=== PATIENT | male | born 1960 | race Caucasian/White ===

== ENCOUNTER 2016-06-11 05:59 | Emergency (ER) | payer OTHER ==
[~2016-06-11] VITALS: Ht 180.3 cm; Wt 102.1 kg
--- NOTE | 2016-06-11 06:21 | ED NECK/BACK PAIN COMPLAINT ---
History of Present Illness General Chief Complaint: Skin Rash/ Abcess Stated Complaint: VERY LARGE PAINFUL LUMP ON NECK Source: patient Exam Limitations: no limitations Vital Signs & Intake/Output Vital Signs & Intake/Output Vital Signs Date Time Temp Pulse Resp B/P Pulse O2 O2 Flow FiO2 Ox Delivery Rate 06/11 0628 96 Room Air 06/12 615 97.2 86 20 123/80 95 Room Air Triage Note: 56yo MALE TO TRIAGE W/CO SWELLING TO L SIDE OF HIS NECK SINCE WEDNESDAY. STATES HE WAS SEEN BY PMD, HAD CT YESTERDAY AT [facility] AND FEELS SWELLING HAS INCREASED SINCE YESTERDAY. ALSO STATES "DUE TO TOO MUCH PAIN HE WAS UNABLE TO SLEEP LAST NIGHT" Triage Nurses Notes Reviewed? yes Onset: Abrupt Duration: day(s): (4) Timing: recent history Location: LEFT NECK Radiation: none HPI: 56-year-old male presents with chief complaint of worsening left-sided neck pain and swelling. He was seen by his primary care doctor on Wednesday and had an outpatient CAT scan done yesterday. According to the he had a small mass there for about 6 weeks with patient reports it was very small and only increased since Wednesday. No fever or chills. No night sweats. He is a former significant smoker. Denies any difficulty with swallowing that he is worried about swallowing solid foods. No voice changes. He states the pain was so bad last night that he couldn't sleep properly. Pain was worse with range of motion of head to the left. (SABA RUBIO,MARY) Allergies Coded Allergies: oxycodone (From OXYCONTIN) (Mild, VOMITING 06/11/16) (DIMAS RUBIO,DANIEL Coughlin) Past History Travel History Traveled to [place] past 21 day No Medical History Any Pertinent Medical History? see below for history Cardiovascular: AFIB, hypertension Gastrointestinal: GERD Surgical History Surgical History: non-contributory Psychosocial History What is your primary language Ukrainian Tobacco Use: Quit >30 days ago Family History Hx Contributory? No (MARY WALTER MD) Review of Systems Review of Systems Constitutional: Denies: chills, fever, malaise, weakness, unexplained weight loss. Eyes: Reports: no symptoms. Ears, Nose, Throat, Mouth: Reports: no symptoms. Respiratory: Denies: cough, short of breath. Cardiovascular: Reports: no symptoms. Gastrointestinal/Abdominal: Reports: no symptoms. Musculoskeletal: Reports: muscle pain, muscle stiffness, neck pain. Skin: Reports: no symptoms. Neurological/Psychological: Reports: anxiety. All Other Systems: Reviewed and Negative (SABA RUBIO,MARY) Physical Exam Physical Exam General Appearance: well developed/nourished, alert, awake, anxious, mild distress Head: atraumatic Eyes: Bilateral: PERRL, EOMI. Ears, Nose, Throat, Mouth: hearing grossly normal Neck: LARGE PALPABLE PAST WITH ASSOCIATED SOFT TISSUE SWELLING nO STRIDOR nO ERYTHEMA Respiratory: normal breath sounds Cardiovascular: regular rate/rhythm Peripheral Pulses: 2+ radial (R), 2+ radial (L) Gastrointestinal: soft, non-tender Back: normal inspection Extremities: normal range of motion Neurologic/Psych: awake, alert, oriented x 3, normal mood/affect Skin: intact, normal color, warm/dry (SABA RUBIO,MARY) Progress Differential Diagnosis: PATHOLOGIC LYMPH NODE INFECTED LN, INFECTED CYST Plan of Care: Orders Procedure Date/time Status COMPREHENSIVE METABOLIC PANEL 06/11 629 Complete CBC WITHOUT DIFFERENTIAL 06/11 0530 Active Laboratory Tests 06/11/16 0646: Anion Gap 10, Estimated GFR > 60, BUN/Creatinine Ratio 15.5, Glucose 147 H, Calcium 9.7, Total Bilirubin 1.3, AST 21, ALT 38, Alkaline Phosphatase 100, Total Protein 7.1, Albumin 4.0, Globulin 3.1, Albumin/Globulin Ratio 1.3, CBC w Diff Pending, WBC Pending, RBC Pending, Hgb Pending, Hct Pending, MCV Pending, MCH Pending, RDW Pending, Plt Count Pending, MPV Pending, PUBS MCHC Pending DR SMITH TO SEE PATIENT IN ED. 6:[address] SARAH LEROY. (SABA RUBIO,MARY) Radiology Impression: PATIENT: SHARON IYER PRESENT AGE: 56 PATIENT ACCOUNT NO: [id number] : 56 LOCATION: [facility] ORDERING PHYSICIAN: JB SMITH MD SERVICE DATE: 06/10/160949 EXAM TYPE: CAT - CT NECK W IV CONTRAST EXAMINATION: CT NECK WITH CONTRAST CLINICAL INFORMATION: Cervical adenopathy. COMPARISON: None TECHNIQUE: Multidetector helical imaging was performed in the axial plane following intravenous administration of 93 mL of Optiray 320. DLP: 771.7 mGy-cm FINDINGS: There is a peripherally enhancing centrally low dense cystic-appearing lesion in the left anterior cervical space which is situated at the anteromedial margin of the left sternocleidomastoid muscle and inferior to the left submandibular gland, measuring 2.1 cm in long axis dimension in the axial plane and 2.5 cm CC. There are inflammatory changes in the surrounding soft tissues at this site as well. No clearly delineated sinus tract is visible. The left jugulodigastric lymph node is mildly enlarged, measuring 1.9 cm in long axis dimension in the axial plane. There are additional conspicuous left-sided level IV lymph nodes which are not pathologically enlarged but are increased in number and size compared to the right side, measuring up to 1 cm in diameter. There is a mildly enlarged 1.5 cm right-sided level V lymph node as well. No additional right-sided cervical adenopathy is seen. No contour abnormality is clearly visible in the pharyngeal mucosal space or oral cavity. No pathologic enhancement is visible in these regions. The laryngeal structures appear relatively normal, though there is asymmetric aeration of the right piriform sinus and the left glottic fold is slightly lateralized and position. There is a small low-density nodule versus cyst measuring 0.8 cm in size in the posterior right thyroid lobe. The carotid sheath vasculature opacifies normally. The parotid and submandibular glands appear normal. The retropharyngeal space is normal. No acute osseous abnormality seen. There is bulky anterior bridging endplate osteophyte formation most notable at the C5-C6 and C6-C7 levels. The imaged mediastinum is unremarkable and the visualized portions of the lungs are clear. There is a sigmoidal-shaped nasal septal deviation with osseous spurring. The visualized portions of the paranasal sinuses are well aerated. The TMJs are normal. The middle ear cavities and mastoid air cells are well aerated bilaterally. The imaged portions of the orbits are unremarkable. The visualized brain parenchyma demonstrates no acute abnormality. IMPRESSION: Cystic-appearing 2.1 x 2.5 cm lesion in the left anterior cervical space lateral to the thyroid cartilage and at the anteromedial margin of the left sternocleidomastoid muscle with mild peripheral enhancement and surrounding soft tissue inflammatory changes. Mildly enlarged left-sided jugulodigastric lymph node and asymmetrically prominent/increased number of left -sided level IV lymph nodes. Nonspecific mildly enlarged right-sided level V lymph node. A pathologic cystic lymph node with additional adenopathy due to an unknown primary lesion is a diagnostic consideration. An inflamed/infected type II brachial cleft cyst with reactive adenopathy is another possibility but would be less typical in a patient of this age. Mild asymmetry of the glottic folds at the level of the larynx without a discrete lesion. Suggest correlation with direct visual inspection. DICTATED BY: MALGORZATA LOERA MD DATE/TIME DICTATED:1055 RACEBOOK WRITER:NATALIIA DATE/TIME TRANSCRIBED:06/10/161055 CONFIDENTIAL, DO NOT COPY WITHOUT APPROPRIATE AUTHORIZATION. 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 He has been evaluated by Dr. SMITH in the emergency department. Plan Augmentin, prednisone and anti-inflammatory. (DIMAS RUBIO,DANIEL Coughlin) Departure Departure Condition: Stable Referrals: DINESH AG MD (PCP/Family) Departure Forms: Customer Survey General Discharge Information (MARY WALTER MD) Departure Disposition: HOME OR SELF CARE Clinical Impression Primary Impression: Neck mass Secondary Impressions: Hyperglycemia, Hyponatremia Additional Instructions: Augmentin prednisone and Toradol as prescribed. Follow-up with Dr. SMITH as discussed. Return if any concerns or sudden worsening. Please note that there might be incidental findings in your evaluation that are unrelated to the current emergency department visit. Please notify your primary care doctor about this emergency department visit in order to obtain and review all of the testing performed so that these incidental findings can be monitored as needed. If you had an x-ray performed, please understand that some fractures may not be seen on the initial set of x-rays. If your symptoms persist you might need a repeat set of x-rays to check for such a fracture. If you had a laceration evaluated, please understand that foreign bodies such as glass or wood may not be visible to the naked eye or on plain x-rays. If the wound becomes red, swollen, increasingly more painful or if there is any drainage from the wound, please have it reevaluated by a physician for the possibility of a retained foreign body. Thank you for choosing the [facility] Emergency Department for your care. It was a pleasure to serve you today. Daniel Jarrell M.D. [facility] Prescriptions: Current Visit Scripts Augmentin (Augmentin 500-125 Tablet) 1 TAB PO TID #21 TAB Methylprednisolone. (Medrol) 1 DP PO AD #1 DP 6 on day 1 then reduce by one tablet daily until gone Ketorolac Tromethamine 1 TAB PO Q6P PRN PAIN #16 TAB PT GIVEN IV TORADOL IN THE ED (DIMAS RUBIO,DANIEL Coughlin)
[2016-06-11] MEDS ORDERED: MEDROL4 M2 PO ×2 (07:32→08:07)
[2016-06-11] MEDS ORDERED: KETOROLAC TROME10 M1 PO ×2 (07:32→08:07)
[2016-06-11] MEDS ORDERED: AUGMENTIN 500-1 EACH PO ×2 (07:32→08:07)
[2016-06-11 07:39] LABS: ABSOLUTE BASOPHIL COUNT 0.1 /CUMM (0.0-0.2); ABSOLUTE EOSINOPHIL COUNT 0 /CUMM (0.0-0.7); ABSOLUTE GRANULOCYTE CT 15.1 /CUMM (1.4-6.5); ABSOLUTE LYMPH COUNT 1.3 /CUMM (1.2-3.4); ABSOLUTE MONOCYTE COUNT 1.4 /CUMM (0.10-0.60); BASOPHIL % 0.3 % (0.0-2.0); EOSINOPHIL % 0.1 % (0-5); GRANULOCYTE % 84.7 % (42.2-75.2); HEMATOCRIT 44.2 % (42-52); MEAN CORPUSCULAR HGB CONC 34.1 G/DL (33.0-37.0); MEAN CORPUSCULAR VOLUME 87.9 FL (80.0-94.0); MEAN PLATELET VOLUME 8.5 FL (7.4-10.4); PLATELET COUNT 237 /CUMM (130-400); RBC DISTRIBUTION WIDTH 12.5 % (11.5-14.5); RED BLOOD CELL CT 5.03 /CUMM (4.70-6.10); WHITE BLOOD CELL COUNT 17.9 /CUMM (4.8-10.8)
[2016-06-11 07:55] VITALS: BP 132/80
== END 2016-06-11 08:13 ==
LOC: ERH 05:59
PROVIDERS: Emergency Medicine
DX: R22.1 Localized swelling, mass and lump, neck (principal); E87.1 Hypo-osmolality and hyponatremia; R73.9 Hyperglycemia, unspecified
CPT/HCPCS: 96365; 96375; J1885

== ENCOUNTER 2017-07-04 12:15 | Emergency (ER) | payer OTHER ==
[~2017-07-04] VITALS: Ht 177.8 cm; Wt 106.6 kg
[~2017-07-04 12:15] MED LIST: AUGMENTIN 500-1 EACH PO; KETOROLAC TROME10 M1 PO; MEDROL4 M2 PO
[2017-07-04 12:18] VITALS: BP 150/100
--- NOTE | 2017-07-04 12:52 | ED INFLUENZA/URI COMPLAINT ---
History of Present Illness General Chief Complaint: Upper Respiratory Sx/Fever Stated Complaint: COUGH WANTS CHEST XRAY SICH FOR 10 DAYS Source: patient, old records Exam Limitations: no limitations Vital Signs & Intake/Output Vital Signs & Intake/Output Vital Signs Date Time Temp Pulse Resp B/P B/P Pulse O2 O2 Flow FiO2 Mean Ox Delivery Rate 07/04 1259 94 Room Air 07/04 1218 97.7 91 22 150/100 94 Room Air Room Air Allergies Coded Allergies: oxycodone (From OXYCONTIN) (Mild, VOMITING 06/11/16) Reconcile Medications Augmentin (Augmentin 500-125 Tablet) 500 MG-125 MG TABLET 1 TAB PO TID INFECTION Codeine Phosphate/Guaifenesi (Guaifen-Codeine 200-20 MG/10ML) 20 MG-200 MG/10 ML LIQUID 10 ML PO Q6HR PRN COUGH Ketorolac Tromethamine 10 MG TABLET 1 TAB PO Q6P PRN pain pt received parenteral toradol in ED Methylprednisolone. (Medrol) 4 MG TAB.DS.PK 1 DP PO AD PAIN 6 on day 1 then reduce by one tablet daily until gone Triage Note: TRIAGE: 57 Y/O MALE PRESENTS REQUESTING CHEST XRAY C/O 10 DAYS OF COUGH. AFEBRILE IN TRIAGE. ROOM AIR SPO2 94%. Triage Nurses Notes Reviewed? yes Onset: Gradual Duration: day(s): (10), constant Timing: recent history Severity: moderate Severity Numbers: 5 Prior Episodes/Possible Cause: occassional episodes No Modifying Factors: none Associated Symptoms: denies HPI: 57-year-old male history of A. fib on elliquis, hypertension former smoker presents to the ER for evaluation complaining of a 10 day history of a nonproductive cough. No fever no chills. 5 days ago he saw his primary care physician prescribed him pro-air inhaler prednisone and Augmentin which she finished today. The cough persists. No sick contacts no shortness of breath chest pain abdominal pain. He reports one episode of vomiting a few days ago however none since. No abdominal pain diarrhea. No sputum production or hemoptysis. He has not been using the inhaler as he was concerned that this could cause a mouth infection He is scheduled to go for pulmonary function testing this week. (Christopher ADLER,Christiano) Past History Travel History Traveled to [place] past 21 day No Medical History Any Pertinent Medical History? see below for history Cardiovascular: AFIB, hypertension Gastrointestinal: GERD Surgical History Surgical History: non-contributory Psychosocial History What is your primary language Greenlandic Tobacco Use: Quit >30 days ago ETOH Use: occasional use Illicit Drug Use: denies illicit drug use Family History Hx Contributory? No (Christiano Herrera) Review of Systems Review of Systems Constitutional: Reports: no symptoms, see HPI. Comments Review of systems: See HPI, All other systems negative. Constitutional, no chills no fever, no malaise HEENT: sore throat no congestion, no ear pain Cardiovascular: No chest pain , no palpitation Skin: no rashes, no change in skin Respiratory: No dyspnea cough no sputum no hemoptysis GI: No nausea no vomiting, Muscle skeletal: No joint pain, no back pain, no neck pain, Neurologic: , no headache Heme/endocrine: No bruising Immunology: No lymphadenopathy (Christiano Herrera) Physical Exam Physical Exam General Appearance: well developed/nourished, no apparent distress, alert, awake Ears, Nose, Throat: normal ENT inspection, moist mucous membrane Comments: Well-developed well-nourished patient in no apparent distress. Head/Face: Atraumatic, no maxillary/frontal sinus tenderness, no facial swelling Eyes: PERRL, EOMI Ear:External auditory canal and Tympanic membranes clear, no erythema, no FB. Nose: atraumatic.Normal inspection Throat: Moist mucous membranes.Pharynx normal. No pharyngeal erythema/exudate seen. No stridor/drooling or assymetry. No swelling or edema. Neck: Supple, no lymphadenopathy, FROM Back: FROM Cardiovascular: Regular rate and rhythms no murmur Respiratory: Chest nontender.There were no bony deformities, no asymmetry. No respiratory distress. Patient speaking in full complete sentences. Breath sounds clear to auscultation bilaterally: NO W/R/R Extremities: full range of motion Neuro: awake, alert, and oriented to person, place and time. There were no obvious focal neurologic abnormalities. Skin: Warm & dry;No appreciable rash on exposed skin Psych: Mood affect normal, normal memory normal judgment. Core Measures Sepsis Present: No Sepsis Focused Exam Completed? No (Christiano Herrera) Progress Differential Diagnosis: influenza, pneumonia, pharyngitis, sinusitis, asthma, bronchitis Plan of Care: Orders Procedure Date/time Status XRY-CHEST XRAY, TWO VIEWS 07/04 1222 Active Patient speaking in full complete sentences lungs are clear auscultation bilaterally. I discussed with the patient at length all of their results. I had an extensive conversation regarding need for close follow up with their primary care physician this week as well as return precautions. I answered all of their questions, they feel comfortable with the plan and follow-up care. I discussed with the patient/family the medications that they will receive. I gave them signs and symptoms that could indicate an adverse reaction. I have advised them to limit their activities until they can see how they respond to the medication. Diagnostic Imaging: Viewed by Me: Radiology Read. Discussed w/RAD: Radiology Read. Radiology Impression: PATIENT: SHARON IYER PRESENT AGE: 57 PATIENT ACCOUNT NO: [id number] : 56 LOCATION: [facility] ORDERING PHYSICIAN: Gifty ADLER SERVICE DATE: 07/04/17 EXAM TYPE: RAD - XRY-CHEST XRAY, TWO VIEWS EXAMINATION: XR CHEST CLINICAL INFORMATION: Pneumonia cough COMPARISON: CT chest March 2013 TECHNIQUE: 2 views of the chest were obtained. FINDINGS: No significant abnormality is noted involving the heart, lungs, mediastinum, bony thorax or soft tissues. IMPRESSION: Normal chest. The small nodules noted on prior CT are not conspicuous on x-ray. These were considered likely benign in the absence of risk factors at that time. DICTATED BY: Robert Phillips MD DATE/TIME DICTATED:07/04/171312 SCHEDULE CLERK: NAATLIIA DATE/TIME TRANSCRIBED:07/04/171312 CONFIDENTIAL, DO NOT COPY WITHOUT APPROPRIATE AUTHORIZATION. <Electronically signed in Other Vendor System> SIGNED BY: Robert Phillips MD 07/04/171317 Initial ED EKG: none (Christiano Herrera) Departure Departure Time of Disposition: 1307 Disposition: HOME OR SELF CARE Condition: Stable Clinical Impression Primary Impression: Bronchitis Referrals: Amy RUBIO,Saravanan Crawford (PCP/Family) Additional Instructions: follow up with dr kam this week. continue using the proair albuterol inhaler. guaifensin with codeine for cough- this may make you drowsy. no driving while taking. return with any concerns Departure Forms: Customer Survey General Discharge Information Prescriptions: Current Visit Scripts Codeine Phosphate/Guaifenesi (Guaifen-Codeine 200-20 MG/10ML) 10 ML PO Q6HR PRN COUGH #150 ML (Christopher ADLER,Christiano) PA/COST CLERK Co-Sign Statement Statement: ED Attending supervision documentation- [] I saw and evaluated the patient. I have also reviewed all the pertinent lab results and diagnostic results. I agree with the findings and the plan of care as documented in the PA's/COST CLERK's documentation. [X] I have reviewed the ED Record and agree with the PA's/COST CLERK's documentation. [] Additions or exceptions (if any) to the PAs/COST CLERK's note and plan are summarized below: [] (Emir RUBIO,Quan Medrano)
[2017-07-04] MEDS ORDERED: GUAIFEN-CODEINE10 ML PO (13:08)
--- NOTE | 2017-07-04 13:18 | RADIOLOGY REPORT ---
EXAMINATION: XR CHEST CLINICAL INFORMATION: Pneumonia cough COMPARISON: CT chest March 2013 TECHNIQUE: 2 views of the chest were obtained. FINDINGS: No significant abnormality is noted involving the heart, lungs, mediastinum, bony thorax or soft tissues. IMPRESSION: Normal chest. The small nodules noted on prior CT are not conspicuous on x-ray. These were considered likely benign in the absence of risk factors at that time.
== END 2017-07-04 13:15 ==
LOC: ERH 12:15
DX: J40 Bronchitis, not specified as acute or chronic (principal); Z87.891 Personal history of nicotine dependence
CPT/HCPCS: 71046